=== PATIENT | male | born 1955 | race Caucasian/White ===

== ENCOUNTER 2019-04-23 05:48 | Inpatient (IN) | payer MEDICARE ==
[~2019-04-23 05:48] MED LIST: Buffered Lidocaine 1% SYRIN* 1 ML/SYRINGE INTRADERM ONE; Tranexamic Acid 1,000 MG in NS 0.9% 50 ML* (outpatient use) IV SCH
[2019-04-23] MEDS ORDERED: Lactated Ringers 1000 ML Bag* 1,000 ML IV SCH ×2 (06:00→11:00)
[2019-04-23] MEDS ORDERED: Ondansetron ODT TAB* 4 MG PO ONE (06:00)
[2019-04-23] MEDS ORDERED: Dexamethasone TAB* 4 MG PO ONE (06:00)
[2019-04-23] MEDS ORDERED: Gabapentin CAP(*) 400 MG PO ONE ×2 (06:00→07:24)
[2019-04-23] MEDS ORDERED: Famotidine IV* 10 MG/ML 2 ML (20 mg) IV ONE (06:00)
[2019-04-23] MEDS ORDERED: DiMENhydriNATE IV* 50 MG/ML VIAL IV PUSH PRN (06:40)
[2019-04-23] MEDS ORDERED: HYDROmorphone INJ1* 1 MG/ML SYRINGE IV PRN (06:40)
[2019-04-23] MEDS ORDERED: PROCHLORPERAZINE INJ 5 MG/ML 2 ML VIAL IV PRN (06:40)
[2019-04-23] MEDS ORDERED: oxyCODONE TAB* 5 MG TAB PO PRN (06:40)
[2019-04-23] MEDS ORDERED: Naloxone* 0.4 MG/ML 1 ML VIAL IV PRN (06:40)
[2019-04-23] MEDS ORDERED: ceFAZolin 2 GM PREMIX in ORs 2 GM/50 ML BAG ONE (07:24)
[2019-04-23] MEDS ORDERED: Dexamethasone TAB* 4 MG ONE (07:24)
[2019-04-23] MEDS ORDERED: Ondansetron ODT TAB* 4 MG ONE (07:24)
[2019-04-23] MEDS ORDERED: Buffered Lidocaine 1% SYRIN* 1 ML/SYRINGE INTRADERM ONE (07:25)
[2019-04-23] MEDS ORDERED: Famotidine IV* 10 MG/ML 2 ML (20 mg) ONE (07:25)
[2019-04-23] MEDS ORDERED: KETAMINE HCL* 50 MG/ML 10 ML VIAL ONE (08:02)
[2019-04-23] MEDS ORDERED: fentaNYL* 50 MCG/ML 2 ML VIAL (100 MCG VIAL) ONE ×2 (08:02→10:53)
[2019-04-23] MEDS ORDERED: Midazolam* 1 MG/ML 5 ML VIAL (5 MG) ONE (08:03)
[2019-04-23] MEDS ORDERED: Rocuronium* 10 MG/ML VIAL ONE (08:06)
[2019-04-23] MEDS ORDERED: Bupivacaine 0.25% SDV PF* 10 ML VIAL INJ ONE (08:30)
[2019-04-23] MEDS ORDERED: HYDROmorphone INJ1* 1 MG/ML SYRINGE ONE ×2 (08:52→10:18)
[2019-04-23] MEDS ORDERED: PROCHLORPERAZINE INJ 5 MG/ML 2 ML VIAL ONE (08:53)
[2019-04-23] MEDS ORDERED: Sugammadex * 500 MG/5 ML VIAL IV PUSH ONE (08:53)
[2019-04-23] MEDS ORDERED: Propofol* 10 MG/ML 20 ML BTL ONE (08:53)
[2019-04-23] MEDS ORDERED: Acetaminophen IV 1GM/100ML * 100 ML ONE (08:54)
[2019-04-23] MEDS ORDERED: Ketorolac INJ* 30 MG/ML 1 ML VIAL ONE (08:54)
[2019-04-23] MEDS ORDERED: Lidocaine 2% PF * 5 ML VIAL ONE (08:54)
[2019-04-23] MEDS ORDERED: Scopolamine 1.5 mg* PATCH ONE (09:11)
[2019-04-23] MEDS ORDERED: hydrALAZINE IV* 20 MG/ML VIAL ONE (09:18)
[2019-04-23] MEDS ORDERED: Labetalol IV* 5 MG/ML 20 ML VIAL ONE (09:18)
[2019-04-23] MEDS ORDERED: Temazepam CAP* 15 MG PO PRN (10:40)
[2019-04-23] MEDS ORDERED: diPHENhydraMINE IV* 50 MG/ML 1 ml VIAL (BENADRYL) IV PRN (10:40)
[2019-04-23] MEDS ORDERED: Polyethylene Glycol 3350* 17 GM PACKET PO PRN (10:40)
[2019-04-23] MEDS ORDERED: diPHENhydraMINE PO* 25 MG PO PRN (10:40)
[2019-04-23] MEDS ORDERED: traMADol TAB* 50 MG PO PRN (10:40)
[2019-04-23] MEDS ORDERED: oxyCODONE/Acetamin 5/325 MG* TAB PO PRN (10:40)
[2019-04-23] MEDS ORDERED: Ondansetron ODT TAB* 4 MG PO PRN (10:40)
[2019-04-23] MEDS ORDERED: Ondansetron INJ* 2 MG/ML VIAL IV PRN (10:40)
[2019-04-23] MEDS ORDERED: Magnesium Hydroxide LIQ* 30 ML UDC PO PRN (10:40)
[2019-04-23] MEDS ORDERED: Cyclobenzaprine TAB* 10 MG PO PRN (10:40)
[2019-04-23] MEDS: fentaNYL* 50 MCG/ML 2 ML VIAL (100 MCG VIAL) IV PRN ×2 (10:56→11:13)
[2019-04-23] MEDS ORDERED: Scopolamine PATCH Remove* 1 NOTE MISC PATCH OFF SCH (12:00)
[2019-04-23] MEDS: Morphine INJ* 2 MG/ML 1 ML SYRINGE (TWO MG - NEW SYRINGE VERSION) IV PRN ×2 (12:39→21:43)
[2019-04-23] MEDS ORDERED: hydrALAZINE IV* 20 MG/ML VIAL IV SLOW PU PRN (12:48)
--- NOTE | 2019-04-23 13:27 | OP ---
CC: PCP * DATE OF OPERATION: 04/23/19 - ROOM #339 DATE OF : 51 SURGEON: Zenon Rojas MD GROUP ROOMS COORDINATOR: CHARY Robles. An volleyball assistant coach was needed for the entirety of the case to help with positioning, retraction, and was utilized throughout all portions of the case. ANESTHESIOLOGIST: Dr. Sorto. ANESTHESIA: General. PRE-OP DIAGNOSIS: Right shoulder rotator cuff arthropathy. POST-OP DIAGNOSIS: Right shoulder rotator cuff arthropathy. OPERATIVE PROCEDURE: Right shoulder reverse arthroplasty with open biceps tenodesis. COMPLICATIONS: None. ESTIMATED BLOOD LOSS: About 150 cc. OUTPUT: Drain x1. IMPLANTS: Aequalis Reversed II size 29 x 40 threaded post baseplate with size 42 centered glenosphere with three interlocking screws, Flex shoulder size 4B stem with a centered tray and +6 poly. DISPOSITION: Stable. INDICATIONS: Surinder Matt is a 63-year-old male who presented with rotator cuff arthropathy. He had high-riding humeral head and tearing of three tendons of the rotator cuff with significant atrophy. After extensive discussion of the risks and benefits including multiple surgical options, he has elected to proceed with surgical treatment. Risks included, but are not limited to bleeding; infection; damage to nerves, vessels, surrounding structures; wound nonhealing; persistent pain; need for further surgery; scaring; stiffness; incomplete relief of symptoms; risks of anesthesia. DESCRIPTION OF PROCEDURE: The patient was greeted in the preoperative area by the attending surgeon. Correct extremity was marked and consent was confirmed. The patient was then brought back to the operating suite where he was placed in the supine position on the operating room table. He then underwent general anesthesia and endotracheal intubation, after which he was appropriately positioned in lazy beach-chair position. All bony prominences were padded. He was secured to the bed. The right shoulder was then prepped and draped in the usual sterile fashion beginning with chlorhexidine soap, scrub, and alcohol wipe , and a final prep with ChloraPrep. After appropriate surgical pause indicating site, side, procedure, and administration of antibiotics, the standard delto-pectoral incision was then made using a 15 blade. Soft tissues were carefully dissected to expose the cephalic vein, which was identified and taken laterally with the deltoid. The pec was identified medially. The deltopectoral interval was exposed. The clavipectoral fascia was excised. The CA ligament was released. Once the fascia and subdeltoid adhesions were released and removed, the pec was found to track down to its humeral insertion. The proximal 1.5 cm was released. The biceps was identified and then tenodesed to the pec tendon using heavy nonabsorbable suture. The biceps was tenotomized proximal to that and then followed through to the joint line. The biceps had ruptured previously more proximally in the joint. The subscap was then identified. Hemostasis was obtained at all times using electrocautery device. The subscap was then released in subscap peel fashion. The head was exposed. Again, there was tearing of the subscap, full tear of the supraspinatus and infraspinatus and the head was escaped. The head was exposed. There were some grade 3 changes to the humeral head. The provisional neck cut was then made using sagittal saw. Broaching then began beginning with a starting awl and then broaching to a size 4B, which was found to have a good fit. The protection plate was placed and attention was directed to the glenoid. With the posterior retractors in place, the anterior, posterior, and superior labrum were removed. The biceps stump was removed. The superior, medial, and inferior glenohumeral ligaments were also removed. The subscap was mobilized. The glenoid neck retractor was placed. There was still some remaining cartilage , which was removed using a Nair. The size 29 baseplate was then placed and the guidewire was then placed. Once it was appropriately positioned, a size 29 mm reamer was used to ream and then the footprint reamer was used by hand for a size 42 glenosphere. Cannulated drilling then began beginning with an 8 mm drill and then 6.5 mm drill. Size 40 was found to be appropriate length and then the screw hole was tapped. The implants were brought to the field and placed with excellent purchase. Three interlocking screws were then placed with excellent purchase. The glenosphere was then positioned and secured with a set screw and attention was directed to the head. The head was brought through the wound. The protection plate was removed and the stem was checked. Once it was appropriately fit, the trial plate and poly were placed. The shoulder was then reduced and taken through range of motion. His preoperative range of motion passively with forward flexion was about 160, abduction to 160, external rotation to about 55. With the implants, his forward flexion was about 150, abduction to 90, external rotation to about 50. Appropriate amount of shuck was visualized and the shoulder was then dislocated. The final implants were then prepared on the back table and then impacted into position. The shoulder was then reduced, taken through range of motion and found to have the same range of motion with the trial. The wounds were then copiously irrigated with sterile saline. The intraarticular drain was placed. The deltopectoral interval was closed with #2 Ethibond sutures in interrupted fashion. The skin was closed in layers with 3-0 Monocryl subcu and 3-0 Monocryl running. The wounds were injected with 0.25% ropivacaine. Sterile dressings were applied, a Cryo/Cuff and an UltraSling. He was awoken from anesthesia and transferred to the PACU in stable condition. POSTOPERATIVE PLAN: He will be nonweightbearing for 6 weeks. He will be admitted overnight for observation. He will be discharged on pain medication. We will have him on 24 hours of postoperative antibiotics. He will have Lovenox while in-house and go home without any DVT prophylaxis due to no previous history. I will see the patient back in 10 to 14 days. [id number]/[facility] #: [id number] AUGUSTINE
[2019-04-23] MEDS: oxyCODONE/Acetamin 5/325 MG* TAB PO PRN ×2 (14:06→20:50)
[2019-04-23] MEDS: ceFAZolin 1 GM ADVAN(*) 1 GM in NS 0.9% 50 ML* 50 ML IVPB SCH ×2 (15:54→23:59)
[2019-04-23] MEDS: Acetaminophen TAB* 325 MG PO SCH (15:58)
[2019-04-23] MEDS: oxyCODONE TAB* 5 MG TAB PO PRN (16:38)
--- NOTE | 2019-04-23 18:27 | CONS ---
Dr. Green, [facility], [place] MEDICINE CONSULTATION REPORT: DATE OF CONSULT: 04/23/19 REQUESTING PROVIDER: Dr. Zenon Rojas. CONSULTING PROVIDER: Alesha Harris NP (dictating for Dara Joy DO). PRIMARY CARE PROVIDER: Dr. Green in [place]. REASON FOR CONSULT: Co-medical management in the postoperative period. HISTORY OF PRESENT ILLNESS: Mr. Matt is a 63-year-old male who is electively admitted today on 04/23/19 for a right total shoulder reverse. Historically, Mr. Matt fell while he was traveling over a month ago and fractured his right ankle and fell on his right shoulder and has a torn rotator cuff that needs to have repair and replacement of the right shoulder. He has failed conservative measures and agreed to undergo a right total shoulder reverse with Dr. Rojas. Mr. Matt is able to answer questions, but is still very sleepy from the anesthesia and often dozes off in mid conversation. He does state that he was in his usual health prior to admission, denying any chest pain, shortness of breath, abdominal pain, nausea, vomiting, cold or flu symptoms, or other concerns. He currently reports persistent pain in the right shoulder and is asking for other pain medication. Denies any other complaints. PAST MEDICAL HISTORY: Significant for: 1. Hypertension. 2. Crohn's disease. 3. Gout. 4. Arthritis. 5. Nephrolithiasis. 6. GERD. 7. Prediabetes. 8. Degenerative joint disease. 9. Vitamin B12 deficiency. 10. Thyroid cyst and nodules. 11. Testicular hypofunction. 12. Irritable bowel syndrome. 13. Allergic rhinitis. 14. The patient has a history of cardiac arrest with use of propofol during a colonoscopy. PAST SURGICAL HISTORY: Includes cholecystectomy, appendectomy, bowel resection , vasectomy, cervical spine surgery, surgical hernia repair, right hand surgery , left rotator cuff surgery, and tonsillectomy. MEDICATIONS: 1. Amlodipine 5 mg daily. 2. Cyclobenzaprine 5 mg 1 tablet 3 times a day. 3. Vitamin D3 50,000 units monthly. 4. B12 injections, inject 1000 mcg weekly. 5. Allopurinol 300 mg 1 tab daily. 6. Fluticasone propionate 50 mcg 2 sprays each naris every day. 7. Indomethacin 25 mg 1 capsule 3 times a day as needed. 8. Pantoprazole 40 mg daily. 9. Vitamin E 400 units daily. 10. Centrum Silver 50+ one tablet daily. 11. Colchicine 0.6 mg p.r.n. 12. Clomiphene 50 mg 1 tablet daily. 13. Diclofenac 1% topical solution apply up to 4 times a day to right shoulder as needed. ALLERGIES: Include PENICILLINS. FAMILY HISTORY: There is a history of heart disease, diabetes, and hypertension in his mother. Father was secondary to Alzheimer's disease. SOCIAL HISTORY: He is a former smoker. He quit in 1998. Reports a 30 plus pack year history of smoking. Alcohol use includes 1 beer a week. He is . 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 He lists his , Alla Matt, as his surrogate decision maker in the event of emergency. PHYSICAL EXAM: Vital Signs: Temperature 98.2, pulse rate 85, respiratory rate 18, blood pressure 142/55, O2 sat 97% on 2 L nasal cannula. General: This is a 63- year-old male seen lying in the hospital bed. He is in no acute distress. HEENT: Head is atraumatic, normocephalic. Pupils are equal, round, and reactive to light and accommodation. Extraocular movements are intact. Oral mucosa is moist. Neck is supple with good range of motion. Cardiac: Regular rate and rhythm. Normal S1, S2 heart sounds. No murmurs appreciated. Radial pulses are 2+ and symmetric bilaterally. Sensation is intact to the right upper extremity. Distal pulses are 2+ and symmetric in the bilateral lower extremities in the dorsalis pedis and posterior tibialis sites. Lungs are clear to auscultation bilaterally. Abdomen is soft, nontender, nondistended. Musculoskeletal: The right upper extremity is in a shoulder immobilizer. There is a hemovac with serosanguinous drainage. No clubbing or cyanosis of the digits. Skin appears warm and dry. Neuro: He is drowsy, but arousable. He is answering questions appropriately; oriented to self, situation , time, and place. ASSESSMENT AND PLAN: This is a 63-year-old male with a past medical history significant for right shoulder pain, degenerative disk disease, gastroesophageal reflux disease, gout and hypertension, who presents today for elective right total shoulder reverse. 1. Status post right total shoulder surgery. Management per Ortho. We will continue to work on p.r.n. analgesia and have PT and OT as recommended by Orthopedics. 2. Hypertension. Reportedly was previously elevated, now with better control. We will continue to monitor his BP. Encourage low-salt, heart-healthy diet. Continue amlodipine and he has p.r.n. hydralazine. I suspect that pain is currently contributing to his higher blood pressure, so we will continue to monitor this. 3. Gastroesophageal reflux disease. Continue dietary control. I will confirm with him that he is still taking pantoprazole, which is on his PCP notes. 4. Gout. Continue allopurinol. Hold colchicine and indomethacin as these are not needed at this time as there is no evidence of gouty flares. 5. Vitamin deficiencies. Resume supplemental D3 and B12 upon discharge. 6. History of testicular hypofunction. Hold clomiphene. Resume upon discharge. 7. Crohn's and irritable bowel disease. He denies any recent flares. He is not on any specialty medications and so he will continue follow up with his outpatient provider upon discharge. 8. DVT prophylaxis: As per Ortho. 9. Code status: He is a full code. TIME SPENT: Approximately 45 minutes was spent on this consultation with more than half that time spent [id number] with the patient obtaining history and physical, performing physical examination, and reviewing the plan of care. Plan of care was also reviewed with my attending, Dr. Joy, who is in agreement. ALESHA HARRIS NP [id number]/[facility] #: [id number] AUGUSTINE
[2019-04-23] MEDS: Docusate CAP* 100 MG PO SCH (20:51)
[2019-04-24] MEDS: Acetaminophen TAB* 325 MG PO SCH ×2 (01:00→07:59)
[2019-04-24] MEDS: Morphine INJ* 2 MG/ML 1 ML SYRINGE (TWO MG - NEW SYRINGE VERSION) IV PRN (03:07)
[2019-04-24] MEDS: oxyCODONE TAB* 5 MG TAB PO PRN (04:05)
[2019-04-24 07:10] LABS: Hematocrit 29 % (42-52); Hemoglobin 9.9 g/dL (14.0-18.0); Mean Platelet Volume 7.8 fL (7.4-10.4); Platelet Count 134 10^3/uL (150-450)
[2019-04-24 07:26] LABS: BUN/Creatinine Ratio 15.9 (8-20); Calcium 8.3 mg/dL (8.6-10.3); EGFR African American 83.9 (>60); EGFR Non-African American 69.4 (>60); Potassium 3.9 mmol/L (3.5-5.0)
[2019-04-24] MEDS: ceFAZolin 1 GM ADVAN(*) 1 GM in NS 0.9% 50 ML* 50 ML IVPB SCH (07:48)
[2019-04-24] MEDS: oxyCODONE/Acetamin 5/325 MG* TAB PO PRN ×2 (07:48→12:36)
[2019-04-24] MEDS: Docusate CAP* 100 MG PO SCH (07:50)
[2019-04-24] MEDS ORDERED: Ketorolac INJ* 15 MG/ML 1 ML VIAL IV PUSH SCH (08:00)
[2019-04-24] MEDS ORDERED: amLODIPine TAB* 5 MG PO SCH (09:00)
[2019-04-24] MEDS ORDERED: Vitamin THERAPEUTIC TAB PO SCH (09:00)
[2019-04-24] MEDS ORDERED: Pantoprazole TAB * 40 MG TAB PO SCH (09:00)
[2019-04-24] MEDS ORDERED: Allopurinol TAB* 300 MG PO SCH (09:00)
[2019-04-24 11:39] VITALS: BP 149/69
[2019-04-24] MEDS ORDERED: Enoxaparin(*) 40 MG/0.4 ML SYR SUBCUT SCH (12:00)
--- NOTE | 2019-04-24 12:40 | DS ---
Orthopedic Discharge Summary - Discharge Summary Date of Admission:04/23/19 Date of Discharge: 04/24/19 Date of Surgery: 04/23/19 Attending Orthopedic Provider: Dr. Rojas Pre-operative Diagnosis: Right shoulder osteoarthritis Operative Procedure: Right total shoulder replacement Disposition of Patient: Home Condition of Patient: Stable History: ROBBIE MCDONALD is a 63 year old M with years of increasingly severe right shoulder pain. Patient has failed conservative management and has elected to undergo a Right total shoulder replacement. Hospital Course: ROBBIE was admitted to [facility] on 04/23/19. Patient underwent a Right total shoulder replacement without complication followed by a brief recovery in PACU and transfer to the Short Stay Surgical Unit in stable condition. Our hospitalist service, physical therapy and occupational therapy also participated in this patients care. Post-op day 1: patient was alert and in no acute distress. Dressing was clean, dry and intact. Operative extremity wrist flexion and extension intact, sensation intact to light touch distally, 2+ radial pulse. Dressing was changed, incision was clean , dry and intact. Patient was deemed to be medically and orthopedically stable for discharge. Physical therapy goals were met. Home Medications Medication Instructions Recorded Confirmed Type Allopurinol [Zyloprim 300 MG TAB] 300 mg PO QAM 04/20/19 04/23/19 History Colchicine [Mitigare] 0.6 mg PO DAILY PRN 04/20/19 04/23/19 History Cyanocobalamin INJ * [Vitamin B12 1,000 mcg IM ONCE 04/20/19 04/23/19 History INJ *] Cyclobenzaprine HCl 10 mg PO Q8H PRN 04/20/19 04/23/19 History D3-50 50,000 Units 1 tab PO MONTHLY 04/20/19 04/23/19 History Ibuprofen [Ibu] 600 mg PO Q6H PRN 04/20/19 04/23/19 History Indomethacin 25 mg PO DAILY PRN 04/20/19 04/23/19 History Multivit-Min/FA/Lycopen/Lutein 1 each PO QAM 04/20/19 04/23/19 History [Centrum Silver Men Tablet] clomiPHENE citrate [Clomiphene 50 mg PO QAM 04/20/19 04/23/19 History Citrate] amLODIPine TAB* [Norvasc 5 mg TAB*] 5 mg PO DAILY 04/23/19 04/23/19 History Discharge Instructions following Orthopedic Surgery: Activity: * Non-Weight Bearing on the upper extremity. Leave arm in sling until you see Dr. Rojas. Wound care: * OK to shower on post-op day 3, no bathing, swimming, or submerging wound. * Use gentle soap, pat dry. Cover with gauze, LEXI wrap or tape. * Visiting home nurse to do wound checks. Call Orthopedic office for: * Increased drainage * Redness * Increased pain * Fever Go to ER with shortness of breath or chest pain. Diet: * Regular diet * Increase fluids and fiber to prevent constipation. * Continue to use stool softeners, call office if no bowel motion within 48 hours. Medications- Sent to [facility] pharmacy. See Home Medication List in your packet for medications that you should take after discharge. Pain Control: Percocet Dosin/325 mg 1-2 tabs by mouth every 4-6 hours as needed for pain. Maximum of 10 tabs per day. Toradol 10 mg by mouth every 6 hours x 3 days. Please note that Percocet contains Tylenol (acetaminophen). Maximum daily dose of Tylenol is 4000 mg from all sources. Antibiotics are required prior to any dental work. FOLLOW UP: Follow up with Dr. Rojas within 10-14 days, call for appointment Please call our office with any questions or concerns ([phone])
== END 2019-04-24 13:50 | disposition home or self-care (01) | DRG 483 ==
LOC: OR 05:48 → SSU 10:40 → OBSVTOIN 11:00 → SSU 11:00
PROVIDERS: ADMIT Orthopaedic Surgery; ATTEND Orthopaedic Surgery
PROC: 0RRJ00Z Replacement of Right Shoulder Joint with Reverse Ball and Socket Synthetic Substitute, Open Approach (ICD-10-PCS; principal; 2019-04-23 08:30)
DX: M19.011 Primary osteoarthritis, right shoulder (principal); K50.90 Crohn's disease, unspecified, without complications; M75.121 Complete rotator cuff tear or rupture of right shoulder, not specified as traumatic; I10 Essential (primary) hypertension; N20.0 Calculus of kidney; K21.9 Gastro-esophageal reflux disease without esophagitis; J30.9 Allergic rhinitis, unspecified; M10.072 Idiopathic gout, left ankle and foot; D50.0 Iron deficiency anemia secondary to blood loss (chronic); D51.9 Vitamin B12 deficiency anemia, unspecified; E29.1 Testicular hypofunction; E55.9 Vitamin D deficiency, unspecified; Z79.899 Other long term (current) drug therapy; Z87.891 Personal history of nicotine dependence; Z88.0 Allergy status to penicillin; Z98.1 Arthrodesis status
CPT/HCPCS: 36415; 80048; 85014; 85018; 85049; 88304; 88311; A9270-GY; C1713; C1776; G8978-GP-CI; G8979-GP-CI; G8980-GP-CI; J0360; J0690; J0780; J1170; J1650; J1885; J2250; J2270; J2704; J3010; J3490; J8540